=== PATIENT | male | born 1985 | race Caucasian/White ===

== ENCOUNTER 2017-11-17 14:42 | Emergency (ER) | payer MEDICAID ==
[2017-11-17 15:02] VITALS: BP 118/81
[2017-11-17] MEDS ORDERED: SULFAMETH/TRIMETH DS 800/160 MG TABLET PO STA (15:41)
[2017-11-17] MEDS ORDERED: IBUPROFEN 600 MG TABLET PO STA (15:41)
[2017-11-17] MEDS ORDERED: MUPIROCIN 2% OINT 1 GM TOP STA (15:41)
--- NOTE | 2017-11-17 15:42 | ED Physician Documentation ---
PD HPI SKIN - Stated complaint Stated Complaint: MEDICAL CLEARANCE - Chief complaint Chief Complaint: Wound - History obtained from History obtained from: Patient, Police - History of Present Illness Timing - onset: How many days ago (few) Timing - duration: Days (has had sore on wrist for several days. does use IV drugs but says it was not a needle site. He is arrested today and is tired ( says drug use yesterday and is coming down today). Brought by [facility] for care treatment of the wrist lesion before going to care home.) Timing - details: Gradual onset Location: LUE (volar wrist sore/infection) Quality / character: Painful, Discolored (red), Swelling, Draining Associated symptoms: No: Fever Contributing factors: Other (drug use) Recently seen: Not recently seen Review of Systems Constitutional: denies: Fever, Chills GI: denies: Nausea, Vomiting, Diarrhea PD PAST MEDICAL HISTORY - Past Medical History Past Medical History: No - Past Surgical History Past Surgical History: No - Present Medications Home Medications: Ambulatory Orders Medication Instructions Recorded Confirmed Mupirocin 1 applic TP TID #15 oint...g. 11/17/17 Sulfamethox/Trimeth 800/160 1 each PO BID #14 tablet 11/17/17 [Bactrim Ds 800/160] - Allergies Allergies/Adverse Reactions: Allergies Allergy/AdvReac Type Severity Reaction Status Date / Time No Known Drug Allergies Allergy Verified 11/17/17 15:04 - Social History Does the pt smoke?: Yes Smoking Status: Current every day smoker Does the pt have substance abuse?: Yes Substance Use and Type: Meth, Heroin - Immunizations Immunizations are current?: Yes PD ED PE NORMAL - Vitals Vital signs reviewed: Yes - General General: Alert and oriented X 3, Well developed/nourished, Other (he is somewhat somnolent but oriented and rousable. He is in handcuffs. ) - Cardiac Cardiac: RRR, No murmur - Respiratory Respiratory: Clear bilaterally - Derm Derm: Normal color, Warm and dry - Extremities Extremities: Other (left wrist volar side with area of redness with some surface exudate, redness, and swelling. no fluctuance. Bedside U/S did not show fluid collection, so no I&D needed. ) - Neuro Neuro: No motor deficit, No sensory deficit Results - Vitals Vitals: Oxygen O2 Source Room air PD MEDICAL DECISION MAKING - ED course Complexity details: considered differential (bedside U/S did not show any fluid collection), d/w patient Departure - Departure Disposition: 01 Home, Self Care Clinical Impression: Abscess Condition: Stable Record reviewed to determine appropriate education?: Yes Instructions: ED Staph Infec Abx Tx Only Prescriptions: Mupirocin 1 applic TP TID #15 oint...g. Sulfamethox/Trimeth 800/160 [Bactrim Ds 800/160] 1 each PO BID #14 tablet Comments: Cleanse the wound and twice daily with soap and water and apply mupirocin antibiotic ointment. Bactrim oral antibiotic twice daily for a week. Recheck if infection does not appear quite improved over the next few days and all better by a week. Keep a light dressing over the area. Discharge Date/Time: 11/17/17 16:16
== END 2017-11-17 16:16 | disposition home or self-care (01) ==
LOC: ED 14:42
DX: L02.414 Cutaneous abscess of left upper limb (principal); F17.200 Nicotine dependence, unspecified, uncomplicated
CPT/HCPCS: 99283; A9270

== ENCOUNTER 2021-02-09 20:50 | Outpatient (CLI) | payer MEDICAID | END 2021-02-09 20:51 | disposition left against medical advice (07) | LOC: EMS 20:50 | DX: R40.4 Transient alteration of awareness (principal) ==

== ENCOUNTER 2023-07-15 15:58 | Outpatient (CLI) | payer OTHER ==
--- NOTE | 2023-07-16 13:00 | XRAY Report ---
PROCEDURE: Hand 3 View LT INDICATIONS: PAIN IN MIDDLE FINGER TECHNIQUE: 3 views of the hand(s) acquired. COMPARISON: None. FINDINGS: Bones: No acute fractures or dislocations. No suspicious bony lesions. Soft tissues: No suspicious soft tissue calcifications. IMPRESSION: No acute bony abnormality. If pain persists with conservative management, consider repeat radiographs in 10-14 days or cross-sectional imaging. Reviewed by: Saul Perez MD on 07/16/2023 12:59 PM PDT Approved by: Saul Perez MD on 07/16/2023 12:59 PM PDT Station ID: [id number]
== END 2023-07-15 15:59 | disposition home or self-care (01) ==
LOC: DI 15:58 → EDSTATUS 16:15
PROVIDERS: ATTEND Registered Nurse
DX: M79.645 Pain in left finger(s) (principal); R22.32 Localized swelling, mass and lump, left upper limb